=== PATIENT | female | born 1955 | race African-American/Black ===

== ENCOUNTER 2021-04-03 08:14 | Emergency (ER) | payer OTHER ==
[2021-04-03 08:35] VITALS: BMI 17.5
[2021-04-03 10:11] LABS: BASO % 0.8 % (0-2.0); EOS % 4.3 % (0-4.5); HEMATOCRIT 43.3 % (32.4-45.2); HEMOGLOBIN 13.8 GM/dL (10.7-15.3); LYMPH % 30.8 % (8-40); MCH 29.6 pg (25.7-33.7); MCHC 31.9 g/dl (32.0-36.0); MEAN CELL VOLUME 92.6 fl (80-96); MEAN PLT VOLUME 8.3 fl (7.5-11.1); MONO % 11.4 % (3.8-10.2); NEUT % 52.7 % (42.8-82.8); PLATELET COUNT 194 10^3/uL (134-434); RBC 4.67 M/mm3 (3.60-5.2); WHITE BLOOD COUNT 4.9 K/mm3 (4.0-10.0)
[2021-04-03 10:21] LABS: INR 0.94 (0.83-1.09)
[2021-04-03 10:29] LABS: CHLORIDE 102 mmol/L (98-107); SODIUM 143 mmol/L (136-145)
[2021-04-03 10:34] LABS: CALCIUM 10.1 mg/dL (8.5-10.1)
[2021-04-03 10:35] LABS: ALBUMIN 3.4 g/dl (3.4-5.0); ANION GAP 10 MMOL/L (8-16); BLOOD UREA NITROGEN 45.2 mg/dL (7-18); CO2 31 mmol/L (21-32); GLUCOSE,RANDOM 80 mg/dL (74-106)
[2021-04-03 10:38] LABS: SGOT/AST 23 U/L (15-37); SGPT/ALT 17 U/L (13-61)
[2021-04-03 10:41] LABS: ALK PHOS 221 U/L (45-117)
[2021-04-03 10:48] LABS: BILIRUBIN,TOTAL 0.4 mg/dL (0.2-1)
[2021-04-03 12:34] VITALS: BP 117/70; PULSE 65; TEMP 97.7
== END 2021-04-03 12:36 | disposition home or self-care (01) ==
LOC: JER 08:14
DX: N18.6 End stage renal disease (principal); Z99.2 Dependence on renal dialysis
CPT/HCPCS: 36415; 71045-TC-FY; 80053; 84439; 84443; 85025; 85610; 86850; 86900; 86901; 93005; 93010; 99285-25

== ENCOUNTER 2021-04-10 06:43 | Day surgery (SDC) | payer OTHER ==
[~2021-04-10 06:43] MED LIST: HEPARIN NA (PORCINE) 5,000 UNITS/ML 1ML VIAL SQ ONE; LIDOCAINE HCL 1%, 10 MG/ML (20ML VIAL) INF ONE
[2021-04-10 07:27] VITALS: BMI 21.4
[2021-04-10] MEDS ORDERED: ONDANSETRON 4 MG/2 ML VIAL IVPUSH PRN (08:12)
[2021-04-10] MEDS ORDERED: PROMETHAZINE HCL 25 MG/1 ML VIAL IVPUSH PRN (08:12)
[2021-04-10] MEDS ORDERED: HEPARIN NA (PORCINE) 5,000 UNITS/ML 1ML VIAL ONE (08:13)
[2021-04-10] MEDS ORDERED: POVIDONE-IODINE OINTMENT 10% - 28.4 GM TUBE ONE (08:13)
[2021-04-10] MEDS ORDERED: PROPOFOL 20 ML ONE (08:26)
[2021-04-10] MEDS ORDERED: fentaNYL CITRATE 250 MCG/5 ML VIAL ONE (08:26)
[2021-04-10] MEDS ORDERED: MIDAZOLAM HCL 2 MG/2 ML SINGLE DOSE VIAL ONE (08:26)
[2021-04-10] MEDS ORDERED: HEPARIN NA (PORCINE) 5,000 UNITS/ML 1ML VIAL SQ ONE (08:55)
[2021-04-10] MEDS ORDERED: LIDOCAINE HCL 1%, 10 MG/ML (20ML VIAL) INF ONE ×3 (08:55→09:23)
[2021-04-10 09:28] LABS: CHLORIDE 96 mmol/L (98-107); SODIUM 140 mmol/L (136-145)
[2021-04-10 09:30] LABS: ALBUMIN 3.7 g/dl (3.4-5.0); ANION GAP 9 MMOL/L (8-16); BLOOD UREA NITROGEN 42.6 mg/dL (7-18); CALCIUM 10.3 mg/dL (8.5-10.1); CO2 35 mmol/L (21-32); GLUCOSE,RANDOM 80 mg/dL (74-106)
[2021-04-10 09:33] LABS: SGPT/ALT 15 U/L (13-61)
[2021-04-10 09:34] LABS: SGOT/AST 13 U/L (15-37)
[2021-04-10 09:35] LABS: BILIRUBIN,TOTAL 0.3 mg/dL (0.2-1)
[2021-04-10 09:36] LABS: ALK PHOS 247 U/L (45-117)
[2021-04-10 09:40] LABS: CREATININE 7.6 mg/dL (0.55-1.3)
[2021-04-10] MEDS ORDERED: ACETAMINOPHEN WITH CODEINE 300MG/30MG TABLET PO PRN (10:56)
[2021-04-10 16:55] VITALS: BP 125/61; PULSE 80; TEMP 97.6
== END 2021-04-10 15:15 | disposition home or self-care (01) ==
LOC: JER 06:43 → JASUSAT 08:09
PROVIDERS: ATTEND Surgery
PROC: 03160JD Bypass Left Axillary Artery to Upper Arm Vein with Synthetic Substitute, Open Approach (ICD-10-PCS; principal; 2021-04-10 10:00)
DX: I12.0 Hypertensive chronic kidney disease with stage 5 chronic kidney disease or end stage renal disease (principal); N18.6 End stage renal disease; Z99.2 Dependence on renal dialysis
CPT/HCPCS: 36415; 80053; 86850; 86900; 86901; 94760; 99284-25; C9803; J1644; U0003; U0005